=== PATIENT | female | born 1955 | race Caucasian/White ===

== ENCOUNTER → 2017-10-29 15:56 | Outpatient (CLI) | payer OTHER, SELFPAY ==
--- NOTE | 2017-10-29 16:01 | DI.US.S_ITS ---
PROCEDURE: US ABDOMEN LIMITED INDICATIONS: RIGHT LOWER QUADRANT PAIN TECHNIQUE: Real-time focused scanning was performed of the abdomen, with image documentation. COMPARISON: None. FINDINGS: The appendix is not definitively identified. There is tenderness to right lower quadrant during the exam. No free fluid or adenopathy is seen in right lower quadrant abdomen. Prominent bowel wall is seen in right lower quadrant with no adjacent echogenic fat or neural hyperemia. IMPRESSION: No secondary sonographic signs for acute appendicitis. Prominent bowel wall seen in right lower quadrant without significant surrounding inflammation or hyperemia. Low-grade diverticulitis or other infectious inflammatory colitis cannot be entirely excluded. This can be further assessed with CT of abdomen and pelvis with IV and oral contrast if clinically indicated. Dictated by: Ulises Camacho M.D. on 10/29/2017 at 16:38 Approved by: Ulises Camacho M.D. on 10/29/2017 at 17:07
== END ==
PROVIDERS: Family Provider Family Medicine; PCP Family Medicine; Visit Provider Family Medicine
DX: R10.31 Right lower quadrant pain (principal)
CPT/HCPCS: 76705

== ENCOUNTER → 2020-01-16 13:06 | Outpatient (CLI) | payer OTHER, SELFPAY ==
--- NOTE | 2020-01-16 13:10 | DI.MG.S_ITS ---
BILATERAL DIGITAL SCREENING MAMMOGRAM 3D/2D WITH CAD: 01/16/2020 CLINICAL: Routine screening. Comparison is made to exams dated: 12/28/2016 mammogram, 02/25/2015 mammogram, and 12/27/2010 mammogram - [facility]. There are scattered fibroglandular elements in both breasts. Current study was also evaluated with a Computer Aided Detection (CAD) system. There is a focal asymmetry in the right breast at 2 o'clock posterior depth. No other significant masses, calcifications, or other findings are seen in either breast. IMPRESSION: INCOMPLETE: NEEDS ADDITIONAL IMAGING EVALUATION The focal asymmetry in the right breast is indeterminate. Additional views with possible ultrasound are recommended. This exam was interpreted at Station ID: [id number]. NOTE: For mammograms, a report in lay terms will be sent to the patient. Approximately 15% of breast malignancies will not be visualized mammographically. In the management of a palpable breast mass, a negative mammogram must not discourage biopsy of a clinically suspicious lesion. Electronically Signed By: Lakshmi lopez/anna:01/20/2020 10:01:50 copy to: Oli Saldaña letter sent: Additional Imaging Needed ACR BI-RADS Category 0: Incomplete [id number]
== END ==
PROVIDERS: Family Provider Family Medicine; PCP Family Medicine; Referring Provider Family Medicine; Visit Provider Family Medicine
DX: Z12.31 Encounter for screening mammogram for malignant neoplasm of breast (principal)
CPT/HCPCS: 77063; 77067

== ENCOUNTER → 2020-02-26 08:36 | Outpatient (CLI) | payer OTHER, SELFPAY ==
--- NOTE | 2020-02-26 | DI.MG.S_ITS ---
UNILATERAL RIGHT DIGITAL DIAGNOSTIC MAMMOGRAM 3D/2D WITH ADDITIONAL VIEWS: 02/26/2020 CLINICAL: Additional evaluation requested from prior study. Comparison is made to exams dated: 01/16/2020 mammogram, 12/28/2016 mammogram, and 02/25/2015 mammogram - [facility]. There are scattered fibroglandular elements in right breast. There is a new 0.8 cm asymmetry with an indistinct margin in the right breast at 12 o'clock middle depth. This is seen in additional views. No other significant masses or calcifications are seen in the breast. IMPRESSION: INCOMPLETE: NEEDS ADDITIONAL IMAGING EVALUATION The new 0.8 cm asymmetry in the right breast is indeterminate. An ultrasound is recommended. US will be performed and dictated separately. This exam was interpreted at Station ID: [id number]. NOTE: For mammograms, a report in lay terms will be sent to the patient. Approximately 15% of breast malignancies will not be visualized mammographically. In the management of a palpable breast mass, a negative mammogram must not discourage biopsy of a clinically suspicious lesion. Electronically Signed By: Homero Weiner acr/:02/26/2020 09:20:10 letter sent: Additional Imaging Needed ACR BI-RADS Category 0: Incomplete [id number]
--- NOTE | 2020-02-26 | DI.US.S_ITS ---
LIMITED ULTRASOUND OF RIGHT BREAST AND AXILLA: 02/26/2020 CLINICAL: Additional evaluation requested from prior study. Comparison is made to exams dated: 02/26/2020 mammogram, 01/16/2020 mammogram, and 12/28/2016 mammogram - [facility]. Ultrasound of the right breast 12 o'clock, and axilla regions was performed. There is a benign 0.5 cm oval cyst in the right breast at 12 o'clock middle depth 3 cm from the nipple. IMPRESSION: BENIGN There is no sonographic evidence of malignancy. The 0.5 cm oval cyst in the right breast is consistent with a complex cyst and is benign. Return to annual mammogram screening schedule is recommended. This exam was interpreted at Station ID: [id number]. Electronically Signed By: Homero Weiner acr/:02/26/2020 10:32:30 letter sent: Normal Exam Ultrasound BI-RADS: 2 Benign
== END ==
PROVIDERS: PCP Family Medicine; Referring Provider Family Medicine; Visit Provider Family Medicine
DX: R92.8 Other abnormal and inconclusive findings on diagnostic imaging of breast (principal); N60.01 Solitary cyst of right breast
CPT/HCPCS: 76642; 77065; G0279

== ENCOUNTER → 2020-05-28 10:40 | Outpatient (CLI) | payer OTHER, SELFPAY ==
[2020-05-28] MEDS: COVID-19 VACC, Ad26(JANSSEN)/PF 0.5 ML IM (10:52)
== END ==
PROVIDERS: PCP Family Medicine; Visit Provider Internal Medicine
DX: Z23 Encounter for immunization (principal)
CPT/HCPCS: 0031A; 91303

== ENCOUNTER → 2021-04-13 14:11 | Outpatient (CLI) | payer OTHER, SELFPAY ==
--- NOTE | 2021-04-13 14:16 | DI.RAD.S_ITS ---
PROCEDURE: XR DEXA AXIAL SKELETON INDICATIONS: Asymptomatic menopausal state COMPARISON: None. FINDINGS: This blank DEXA report has been sent in error by the PACS system. The correct and complete report will be forthcoming in 1-2 days. Thank you for your patience and understanding. Dictated by: Jesica Kerr MD, PhD on 04/14/2021 at 8:19 Approved by: Jesica Kerr MD, PhD on 04/14/2021 at 8:19
== END ==
PROVIDERS: PCP Family Medicine; Referring Provider Family Medicine; Visit Provider Family Medicine
DX: Z78.0 Asymptomatic menopausal state (principal); M85.851 Other specified disorders of bone density and structure, right thigh
CPT/HCPCS: 77080

== ENCOUNTER → 2021-10-04 11:56 | Outpatient (CLI) | payer OTHER, SELFPAY ==
--- NOTE | 2021-10-04 | DI.US.S_ITS ---
ULTRASOUND OF RIGHT BREAST: 10/04/2021 CLINICAL: Palpable right breast lump. Comparison is made to exams dated: 10/04/2021 mammogram, 02/26/2020 ultrasound, 02/26/2020 mammogram, 01/16/2020 mammogram, and 12/28/2016 mammogram - [facility]. Color flow ultrasound of the right breast was performed. [place] scale images of the real-time examination were reviewed. There is an irregular mass in the right breast at 5 o'clock posterior depth. This irregular mass is hypoechoic with posterior acoustic shadowing. This correlates with mammography findings. Color flow imaging demonstrates that there is no increase in vascularity. IMPRESSION: HIGHLY SUGGESTIVE OF MALIGNANCY The irregular mass in the right breast has a differential diagnosis of carcinoma and is highly suggestive of malignancy. An ultrasound guided biopsy is recommended. This exam was interpreted at Station ID: [id number]. Electronically Signed By: Homero Weiner acr/:10/04/2021 13:12:41 letter sent: Biopsy Required Ultrasound BI-RADS: 5 Highly suggestive of malignancy
--- NOTE | 2021-10-04 | DI.MG.S_ITS ---
BILATERAL DIGITAL DIAGNOSTIC MAMMOGRAM 3D/2D: 10/04/2021 CLINICAL: Right breast mass. Comparison is made to exams dated: 02/26/2020 ultrasound, 02/26/2020 mammogram, 01/16/2020 mammogram, 12/28/2016 mammogram, and 02/25/2015 mammogram - [facility]. There are scattered fibroglandular elements in both breasts. There is a 2 cm mass in the right breast at 3 o'clock posterior depth 7 cm from the nipple. No other significant masses, calcifications, or other findings are seen in either breast. IMPRESSION: INCOMPLETE: NEEDS ADDITIONAL IMAGING EVALUATION The 2 cm mass in the right breast needs additional evaluation. US will be performed and dictated separately. Based on the Tyrer Cuzick model (a risk assessment model) the patient's lifetime risk is 6.4% and her 10 year risk is 3.2%. According to the ACR, ACS, and NCCN guidelines, an annual breast MRI exam along with mammogram is recommended if the patient's lifetime risk is 20% or greater. This exam was interpreted at Station ID: [id number]. NOTE: For mammograms, a report in lay terms will be sent to the patient. Approximately 15% of breast malignancies will not be visualized mammographically. In the management of a palpable breast mass, a negative mammogram must not discourage biopsy of a clinically suspicious lesion. Electronically Signed By: Homero Weiner acr/:10/04/2021 12:31:20 ACR BI-RADS Category 0: Incomplete 3340F
== END ==
PROVIDERS: PCP Family Medicine; Referring Provider Family Medicine; Visit Provider Family Medicine
DX: N64.4 Mastodynia (principal); N63.14 Unspecified lump in the right breast, lower inner quadrant; R92.8 Other abnormal and inconclusive findings on diagnostic imaging of breast
CPT/HCPCS: 76642; 77066; G0279

== ENCOUNTER → 2021-10-13 14:09 | Outpatient (CLI) | payer OTHER, SELFPAY ==
--- NOTE | 2021-10-13 | PATH_ITS ---
[facility] Accession Number: [id number] . 01 Material submitted: . breast - RIGHT BREAST MASS 5:00 . 01 Diagnosis: Right Breast Mass, 5 o'clock, Needle Core Biopsy: Invasive mammary carcinoma. Histologic type: Ductal. Histologic grade: Moderate to poorly differentiated, grade 2-3/3. Combined total Ronal histologic score: 7-8 (tubule formation score 3/3, nuclear pleomorphism score 2-3, mitotic score 2/3). Largest linear dimension of invasive carcinoma: 9.5 mm on one core. Ductal carcinoma in situ (DCIS): Not definitively identified. Lymphovascular invasion: Not identified. Ancillary studies: Estrogen receptor: Positive (99%, moderate to strong intensity). Progesterone receptor: Negative (0%). intensity). HER2: See addendum. MRV 10/19/2021 1535 Local . 01 Comment: As part of ongoing quality improvement coordinator (rn), this case is also reviewed by Dr. Sabiha Sandhu, who concurs with the given interpretation. . HER2 immunohistochemistry is pending and the results will be reported in an addendum. . 01 Electronically signed: . Agnes Yañez MD, Pathologist NPI- [id number] . 01 Gross description: . Received in formalin and labeled with right breast 5:00 are four pieces of coker adipose tissue measuring 2.1 x 0.7 x 0.4 to 0.4 x 0.4 x 0.3 cm. All four pieces are entirely submitted in cassette A1. . Collection date and time is listed as 10/13/2021 at 1524, for a total approximate fixation time after processing of 20 hours. ([id number]) /MRV 10/14/2021 0918 Local . 01 Microscopic: . E-cadherin is positive supporting ductal differentiation. Predictive and prognostic markers are also performed and are refelected in the final diagnosis. All controls stain appropriately. . Technical Note: This test and its performance characteristics have been determined by [facility]. It has not been cleared or approved by the U.S. Food and Drug Administration. The FDA has determined that such clearance or approval is not necessary. This test is used for clinical purposes. It should not be regarded as investigational or for research. . Internal controls for ER and GA are positive. Cold ischemic time is <5 minutes. The scoring criteria for breast biomarkers by immunohistochemistry is based on the ASCO/CAP guidelines (Rom AC et al, J Clin Oncol: 2017Aug 28;36(20):7742-9205 and Mary Ann ME et al, Arch Pathol Lab Med: 2009;134(6):907-22). Deparaffinized sections of formalin fixed tissue (along with appropriate positive controls) are incubated with the above antibody(s). Using the automated [place] stainer, tissue is incubated with the designated antibody which is then localized by a non-biotin, dual polymer detection system. The external controls are reviewed for appropriate reactivity and found to be adequate. Results on the target cell population are indicated above. These tests have not been validated on decalcified or alcohol-based fixed tissue. This test was developed and its performance characteristics determined by [facility]. It has not been cleared or approved by the U.S. Food and Drug Administration. The FDA has determined that such clearance or approval is not necessary. This test is used for clinical purposes. It should not be regarded as investigational or for research. . . 01 Pathologist provided ICD-10: C50.911 . 01 CPT . 981628, 304197, 637880, 582262, K66353 Specimen Comment: A courtesy copy of this report has been sent to [phone] Performed at: 01 [facility] [address] [place] [address], [place], [place] [id number] MD Sergo Schultz MD Phone: [phone]
--- NOTE | 2021-10-13 14:11 | DI.US.S_ITS ---
ULTRASOUND GUIDED BIOPSY RIGHT BREAST USING VACUUM DEVICE WITH MARKING DEVICE INSERTED AND POST MAMMOGRAPHIC IMAGIN10/13/2021 CLINICAL: Right breast mass. PATIENT CONSENT: Risks (minor bleeding, infection, vasovagal reaction and repeat procedure), benefits and alternatives were explained to the patient and written informed consent was obtained. Correlation is made to exams dated: 10/04/2021 ultrasound, 10/04/2021 mammogram, 02/26/2020 ultrasound, 02/26/2020 mammogram, 01/16/2020 mammogram, and 12/28/2016 mammogram - [facility]. An ultrasound guided biopsy using real-time ultrasound was performed for the indistinct irregular shaped mass located in the right breast at 5 o'clock posterior depth 2 cm from the nipple. This was described on the previous mammography and ultrasound reports. The skin was prepped in the usual manner. Local anesthetic was administered to the access site. A skin brittany was made in the breast. The abnormality was approached from the lateral aspect. A 13 gauge biopsy needle was placed adjacent to the abnormality under ultrasound guidance. Once the needle was documented to be in the correct location, six specimens were obtained using the Mammotome biopsy system. A clip was inserted into the biopsy cavity. A sterile dressing was applied to the access site. Post procedure mammographic imaging demonstrates the location device at the targeted area. The specimens were sent to the laboratory for pathological analysis. IMPRESSION: ULTRASOUND GUIDED BIOPSY MALIGNANT Ultrasound guided biopsy of the mass in the right breast at 5 o'clock posterior depth 2 cm from the nipple was successful. Pathology indicates malignant invasive ductal carcinoma (ID). Pathology results are concordant with imaging findings. This exam was interpreted at Station ID: [id number]. Alan lipscomb,lc/:10/20/2021 09:11:16
--- NOTE | 2021-10-13 14:12 | DI.MG.S_ITS ---
UNILATERAL RIGHT DIGITAL DIAGNOSTIC MAMMOGRAM 3D/2D POST-NEEDLE BIOPSY: 10/13/2021 CLINICAL: Right breast post clip. Comparison is made to exams dated: 10/04/2021 ultrasound, 10/04/2021 mammogram, 02/26/2020 mammogram, and 01/16/2020 mammogram - [facility]. There are scattered areas of fibroglandular density in the right breast (category b / 25%-50% glandular tissue). There is a marker clip in the appropriate position in the right breast at 5 o'clock posterior depth. This marker clip placement is at the biopsy site. This correlates with ultrasound findings and the biopsy as well as previously described mass on diagnostic mammogram. IMPRESSION: POST PROCEDURE MAMMOGRAM FOR MARKER PLACEMENT There was a successful marker clip placement in the right breast posterior depth at the 5 o'clock position. Based on the Tyrer Cuzick model (a risk assessment model) the patient's lifetime risk is 6.4% and her 10 year risk is 3.2%. According to the ACR, ACS, and NCCN guidelines, an annual breast MRI exam along with mammogram is recommended if the patient's lifetime risk is 20% or greater. This exam was interpreted at Station ID: [id number]. NOTE: For mammograms, a report in lay terms will be sent to the patient. Approximately 15% of breast malignancies will not be visualized mammographically. In the management of a palpable breast mass, a negative mammogram must not discourage biopsy of a clinically suspicious lesion. Electronically Signed By: Alan Landeros M.D. aty/:10/13/2021 17:09:57 ACR BI-RADS Category Post-procedure mammogram for marker placement
== END ==
PROVIDERS: PCP Family Medicine; Referring Provider Family Medicine; Visit Provider Family Medicine
DX: C50.311 Malignant neoplasm of lower-inner quadrant of right female breast; Z17.0 Estrogen receptor positive status [ER+]
CPT/HCPCS: 19083; 77065

== ENCOUNTER → 2021-11-10 08:27 | Outpatient (CLI) | payer OTHER, SELFPAY ==
--- NOTE | 2021-11-10 08:29 | DI.CT.S_ITS ---
PROCEDURE: CT CHEST ABD PEL W CON INDICATIONS: right breast cancer TECHNIQUE: After the administration of oral and intravenous contrast, axial sections acquired from the supraclavicular neck to the pubic symphysis. Coronal and sagittal reformats were performed. For radiation dose reduction, the following was used: automated exposure control, adjustment of mA and/or kV according to patient size. COMPARISON:[facility], , MM DIAGNOSTIC MAMMO BI, 10/04/2021, 12:14. [facility], , US BX BREAST PERC W VAC DEVICE, 10/13/2021, 14:37. [facility], US BREAST RT LIMITED, 10/04/2021, 12:54. FINDINGS: Image quality: Excellent. CHEST: Lower Neck: No enlarged lymph nodes. Thyroid: Within normal limits. Axillae: There is a 0.9 x 1.1 cm right axillary lymph node Chest Wall: There is a 1.5 x 1.7 cm mass in the right breast, consistent with known breast cancer. Lungs and Airways: Small right lung nodules are present as listed. Nodule 1: 3 mm; right upper lobe; series 5, image 128. Nodule 2: 1 mm; right upper lobe; series 5, image 139. Nodule 3: 1 mm; right middle lobe; series 5, image 194. Pleura: No pneumothorax or pleural effusions. Heart: Heart size is normal. No pericardial effusion. Thoracic Vessels: The aorta and pulmonary arteries demonstrate normal size. Mediastinum and Jeane: No enlarged lymph nodes. Esophagus: No wall thickening. Small hiatal hernia. ABDOMEN: Liver: Unremarkable. Gallbladder: Gallbladder is absent. Biliary ducts: Unremarkable. Pancreas: Unremarkable. Spleen: Unremarkable. Adrenal Glands: Unremarkable. Kidneys and Ureters: Unremarkable. Stomach and Bowel: Stomach, small bowel loops, and colon are normal in caliber. Diverticulosis without acute diverticulitis. There is a moderate to large amount of stool in colon. Peritoneum: No abnormal intraperitoneal fluid. No free air. Ventral Wall: No hernia. Abdominal Nodes: No retroperitoneal or mesenteric adenopathy by size criteria. Vessels: Aorta and inferior vena cava are normal in size. PELVIS: Pelvic Organs: Uterus and ovaries are grossly normal. No adnexal mass. No pathological free-fluid in pelvis. Bladder: Unremarkable. Pelvic Nodes: No enlarged lymph nodes. Miscellaneous: No inguinal hernias are seen. Bones: Grade 1 anterolisthesis of L3 on L4. Moderate degenerative disc and facet disease in lumbar spine. IMPRESSION: 1. There is a mass in the right breast consistent with known breast cancer. 2. A borderline sized right axillary lymph node. Cannot rule out regional lymph node metastasis. 3. Multiple small indeterminate right lung nodules. In this patient with known primary neoplasm, a short-term follow-up CT is recommended in 3 months. 4. Diverticulosis without diverticulitis. Dictated by: Olga Jones M.D. on 11/10/2021 at 13:39 Approved by: Olga Jones M.D. on 11/10/2021 at 13:48
== END ==
PROVIDERS: PCP Family Medicine; Referring Provider Internal Medicine Hematology & Oncology; Visit Provider Internal Medicine Hematology & Oncology
DX: C50.911 Malignant neoplasm of unspecified site of right female breast (principal); R05.9 Cough, unspecified; R63.4 Abnormal weight loss; R91.8 Other nonspecific abnormal finding of lung field; K57.90 Diverticulosis of intestine, part unspecified, without perforation or abscess without bleeding; K44.9 Diaphragmatic hernia without obstruction or gangrene; Z90.49 Acquired absence of other specified parts of digestive tract
CPT/HCPCS: 71260; 74177; Q9967

== ENCOUNTER → 2021-11-14 06:42 | Outpatient (CLI) | payer OTHER, SELFPAY ==
--- NOTE | 2021-11-14 06:43 | DI.ECHO.S_ITS ---
[facility]---------+ [facility] +---------+ : : [address] [place] : : : : [id number] : : : : Phone: [phone]+ Echocardiogram Report + + :Name: KIMBERLEE MORAN Study Date: 11/14/2021 Height: 66 in : :[facility] ReadingLocation: Weight: 155 lb : : Gender: Female BSA: 1.8 m2 : :: 1955 Age: 66 yrs BP: 107/77 mmHg: :Reason For Study: RIGHT BREAST CANCER : :Ordering Physician: ANDRE, : :BLAYNE Performed By: Ila Purvis : :Referring: BLAYNE POWELL : + + Interpretation Summary Left ventricular ejection fraction is estimated to be 55 +/- 5%. Left ventricular global longitudinal strain average is -19.1%. Mild mid to distal inferolateral hypokinesis is suspected. Procedure: A two-dimensional transthoracic echocardiogram with color flow and Doppler was performed. The study quality was technically adequate. There is no prior echocardiogram noted for this patient. The patient was in sinus rhythm with heart rates between 59-64 bpm during the exam. Left Ventricle: The left ventricle is normal in size and wall thickness. Left ventricular ejection fraction is estimated to be 55 +/- 5%. Left ventricular global longitudinal strain average is -19.1%. Mild mid to distal inferolateral hypokinesis is suspected. Right Ventricle: The right ventricle is normal in size and function. Atria: The left atrial size is normal. Right atrial size is normal. There is no Doppler evidence for an interatrial shunt. Mitral Valve: The mitral valve is normal in structure and function. There is mild mitral regurgitation. Aortic Valve: The aortic valve is trileaflet. The aortic valve opens well. There is no aortic valve stenosis. No aortic regurgitation is present. Tricuspid Valve: The tricuspid valve leaflets are thin and pliable. There is mild to moderate tricuspid regurgitation. The right ventricular systolic pressure is estimated to be at least 24 mmHg based on an estimated right atrial pressure of 3 mm Hg. Pulmonic Valve: The pulmonic valve leaflets are thin and pliable; valve motion is normal. There is trace pulmonic regurgitation. Great Vessels: The aortic root is normal size. The dimensions of the ascending aorta are normal. The IVC is of normal diameter and collapses greater than 50% with a sniff. This suggests a low right atrial pressure of 3 mm Hg. Pericardium/ Pleura There is no pericardial effusion. There is no pleural effusion. MMode/2D Measurements & Calculations LVIDd: 5.1 cm LVOT diam: 2.2 cm LVIDs: 3.3 cm Ao root diam: 3.0 cm FS: 35.4 % asc Aorta Diam: 2.9 cm EPSS: 0.67 cm Ao Arch Diam (Prox Trans): 2.8 cm IVSd: 0.66 cm LVPWd: 0.88 cm LV juarez. diameter/BSA (cm/m^2): 2.9 LV sys. diameter/BSA (cm/m^2): 1.8 LA A2 area: 17.1 cm2 RA long axis: 4.8 cm LA A4 area: 16.5 cm2 RA area: 15.6 cm2 LA length (vol): 5.7 cm RA vol: 43.0 ml LA vol: 42.2 ml RA : 24.0 ml/m2 LA vol index: 23.5 ml/m2 IVC diam: 1.1 cm RVD1 (basal): 3.1 cm RVD2 (mid): 2.6 cm TAPSE: 2.3 cm Doppler Measurements & Calculations Ao V2 max: 171.0 cm/sec LVOT Max Rl: 88.2 cm/sec Ao V2 mean: 130.1 cm/sec LV V1 max P.1 mmHg Ao max P.7 mmHg LV V1 VTI: 21.7 cm Ao mean P.2 mmHg KENIA(I,D): 2.1 cm2 Ao V2 VTI: 38.6 cm KENIA(V,D): 1.9 cm2 sev ratio: 0.56 KENIA indexed to BSA (cm^2/m^2): 1.2 MV E max rl: 73.9 cm/sec TR max rl: 228.0 cm/sec MV A max rl: 64.5 cm/sec TR max P.8 mmHg MV E/A: 1.1 PA V2 max: 74.7 cm/sec Med Peak E' Rl: 8.2 cm/sec PA V2 mean: 49.0 cm/sec E/E' med: 9.0 PA mean P.1 mmHg Lat Peak E' Rl: 12.5 cm/sec PA pr(Accel): 10.5 mmHg E/E' lat: 5.9 E/e' average: 7.4 MV dec time: 0.26 sec SV(LVOT): 80.9 ml Reading Physician:02:49 PM
== END ==
PROVIDERS: PCP Family Medicine; Referring Provider Internal Medicine Hematology & Oncology; Visit Provider Internal Medicine Hematology & Oncology
DX: C50.911 Malignant neoplasm of unspecified site of right female breast (principal); I08.1 Rheumatic disorders of both mitral and tricuspid valves
CPT/HCPCS: 93306; 93356

== ENCOUNTER → 2021-11-17 10:38 | Outpatient (CLI) | payer OTHER, SELFPAY ==
--- NOTE | 2021-11-17 10:40 | DI.MRI.S_ITS ---
BREAST MRI OF BOTH BREASTS: 11/17/2021 CLINICAL: Right breast cancer. Comparison is made to exams dated: 10/13/2021 ultrasound biopsy, 10/13/2021 mammogram, 10/04/2021 ultrasound, and 10/04/2021 mammogram - [facility]. Interpretation of this MRI was correlated with available mammograms and ultrasounds. The patient was placed prone in a dedicated breast imaging coil. Precontrast axial STIR and 3D FLASH without fat saturation sequences were obtained. Both before and after bolus injection of contrast, sequential 1-minute axial 3D FLASH with fat saturation sequences for 3 time points, with subtraction images and maximum intensity projections (MIP's) generated. Delayed sagittal FLASH images with fat saturation were also obtained. Computer-aided detection, including computer algorithm analysis of MRI image data for lesion detection and characterization, pharmacokinetic analysis, with further physician review for interpretation, was performed. Image quality: Excellent. There is minimal background parenchymal enhancement. Right breast: At the 5 o'clock region of the right breast 2 centimeters from the nipple, there is a spiculated mass measuring 23 x 19 x 19 millimeters with heterogeneous internal enhancement, with adjacent biopsy clip. Single prominent lymph node that seem to have different morphology than the rest of the lymph nodes in right axilla (series 6, image 126) measuring 14 x 12 millimeters. At the 9 o'clock position of the right breast, 2 centimeters from nipple, there is a 5 millimeter focus (15/50) without washout kinetics. No other suspicious mass, focus, or non mass enhancement is identified. Left breast: No suspicious mass, focus, or non mass enhancement. Miscellaneous: No significant, partially visualized non breast findings. IMPRESSION: KNOWN BIOPSY PROVEN MALIGNANCY Right breast: 23 x 19 x 19 millimeter spiculated heterogeneously enhancing mass at the 5 o'clock position compatible with biopsy-proven invasive ductal carcinoma. There is a single suspicious lymph node in the level 1 position of the superior right axilla (6/126), appearing different from the other lymph nodes in this patient. In addition, there is a solitary focus without washout kinetics measuring 5 millimeters at the 9 o'clock position of the right breast 2 centimeters from the nipple (15/50). If clinically necessary, a second-look ultrasound could be performed to evaluate these findings if tissue sampling is necessary. Left breast: No suspicious mass, non-mass enhancement, or focus. BIRADS 6 COMMENT: The imaging literature indicates that a negative contrast breast MRI examination has a high sensitivity and a moderate specificity for detecting and excluding invasive carcinomas to a detection threshold of 3-5 mm; nonetheless, appropriate clinical and mammographic follow-up are recommended. MRI is not sensitive for detecting DCIS (ductal carcinoma in situ) and may not detect large invasive neoplasms that show only minimal enhancement such as mucinous carcinoma. If there are suspicious calcifications or clinically worrisome palpable masses, then biopsy should still be considered. Invasive neoplasms can be hidden by co-existent and benign enhancement caused by mastitis, hormone therapy effects, radiation therapy, , and recent biopsy or surgery. False positive examinations can occur in a number of circumstances, including breasts that have recently been subject to invasive procedures and those that contain atypical ductal hyperplasia, hormonally stimulated glandular tissue, fat necrosis, or radial scars. This exam was interpreted at Station ID: [id number]. Electronically Signed By: Red Arevalo M.D. lc/:11/17/2021 13:26:35 ACR BI-RADS Category 6: Known biopsy proven malignancy 3346F
== END ==
PROVIDERS: PCP Family Medicine; Referring Provider Internal Medicine Hematology & Oncology; Visit Provider Internal Medicine Hematology & Oncology
DX: C50.311 Malignant neoplasm of lower-inner quadrant of right female breast (principal); R59.0 Localized enlarged lymph nodes
CPT/HCPCS: 77049; A9579

== ENCOUNTER → 2021-11-22 09:36 | Outpatient (CLI) | payer OTHER, SELFPAY ==
[2021-11-22 11:15] LABS: COVID19 -Nasal RAPID Negative (Negative)
== END ==
PROVIDERS: PCP Family Medicine; Visit Provider Surgery
DX: Z01.812 Encounter for preprocedural laboratory examination (principal); Z20.822 Contact with and (suspected) exposure to COVID-19
CPT/HCPCS: 87635; C9803

== ENCOUNTER 2021-11-23 07:46 | Day surgery (SDC) | payer OTHER, SELFPAY ==
[2021-11-21 14:30] VITALS: BMI 25.0
[2021-11-23] VITALS (7 sets, daily range): BP systolic 96–110; BP diastolic 59–69; PULSE 60–71; RESP 12–24; TEMP 36.1–36.9; O2SAT 99–100; BMI 25.0
--- NOTE | 2021-11-23 | DI.RAD.S_ITS ---
PROCEDURE: XR CHEST 1V INDICATIONS: PORT A CATH POST O-P TECHNIQUE: One view of the chest was acquired. COMPARISON: [facility], CT, CT CHEST ABD PEL W CON, 11/10/2021, 9:11. FINDINGS: Surgical changes and devices: There is a tunneled left port device in place. Distal tip projects over the mid SVC. Lungs and pleura: Lungs are clear. No pleural effusions or pneumothorax. Mediastinum: Mediastinal contours appear normal. Heart size is normal. Bones and chest wall: No suspicious bony lesions. Overlying soft tissues appear unremarkable. IMPRESSION: Interval placement of tunneled left port device with the distal tip projecting over the mid SVC. No pneumothorax. Dictated by: Alan Landeros M.D. on 11/23/2021 at 11:47 Approved by: Alan Landeros M.D. on 11/23/2021 at 11:50
[2021-11-23] MEDS: ACETAMINOPHEN 325 MG TABLET 650 MG PO (08:19)
[2021-11-23] MEDS: APREPITANT 40 MG CAPSULE PO (08:19)
[2021-11-23] MEDS: LACTATED RINGERS 1,000 ML 100 ML IV ×2 (08:20→09:36)
--- NOTE | 2021-11-23 08:28 | PM.HP.1 ---
History of Present Illness History of Present Illness Date Patient Seen: 11/23/21 Time Patient Seen: 08:28 Chief complaint: Port a Cath Placement Narrative: 66-year-old woman with right biopsy-proven breast cancer HER2 positive who will be undergoing neoadjuvant therapy. She is here today for Port-A-Cath placement. She has never had a previous indwelling central catheter. No previous bleeding or anesthetic issues other than nausea with prior surgery. Patient History Medical History Anesthesia complication Arthritis COVID-19 virus infection (08/2021) Diverticulosis Hypothyroidism (~11/2020) Surgical History History of surgery of uterus Hx of right breast biopsy (10/13/21) Hx of tonsillectomy Family & Social History Family History Son Leukemia Social History: household members spouse Tobacco & Substance use: Smoking Status Never smoker alcohol intake current alcohol intake frequency 0-2 drinks per day Substance Use Type does not use Meds Home Medications and Allergies Home Medications Medication Instructions Recorded Confirmed Type cholecalciferol (vitamin D3) 50 50 mcg PO DAILY 11/07/21 11/23/21 History mcg (2,000 unit) capsule (Vitamin D3) levothyroxine 75 mcg tablet 75 mcg PO DAILY 11/07/21 11/23/21 History magnesium 200 mg tablet 400 mg PO DAILY 11/07/21 11/17/21 History olive leaf extract 250 mg capsule mg PO 11/07/21 History pectin 2 mg lozenges mg mucous membrane 11/07/21 History Allergies Allergy/AdvReac Type Severity Reaction Status Date / Time amoxicillin Allergy Unknown Rash Verified 11/21/21 14:32 levofloxacin [From Levaquin] Allergy Unknown Seizure Verified 11/07/21 15:57 Exam Narrative Exam Narrative: General adult woman alert oriented no acute distress Chest nonlabored respirations Abdomen soft and nondistended Assessment & Plan Assessment and plan (1) Breast cancer, right breast: Status: Acute Plan 66-year-old woman with HER2 positive right breast cancer here for Port-A-Cath placement. Overview of the procedure was discussed with the patient. Operative risks including bleeding, infection, mechanical device failure, embolism, pneumothorax were discussed. Her questions have been answered and she is in agreement with this plan Time Spent With Patient Critical Care time: I spent a total of [] minutes of critical care time on this patient's care today; this time is exclusive of procedural time.
[2021-11-23] MEDS: CLINDAMYCIN 900 MG/50 ML PIGGYBACK 50 MG IV (08:45)
[2021-11-23] MEDS: BUPIVACAINE 0.25% (PF) VIAL 30 ML INJ (09:15)
[2021-11-23] MEDS: HEPARIN 5,000 UNIT, SODIUM CHLORIDE 0.9% 50 ML IV (09:18)
--- NOTE | 2021-11-23 09:48 | P.OP_ITS ---
Operative Date/Time/Diagnoses Date of procedure: 11/23/21 Time of procedure: 09:48 Pre-op diagnosis: Right breast cancer Post-op diagnosis: same Procedure & Clinicians Procedure: Port-A-Cath placement with ultrasound guidance Same procedure as scheduled: Yes Indications: 66-year-old woman with right breast cancer HER2 positive who will be undergoing neoadjuvant chemotherapy requires central access Surgeon: Alejandro Reed Anesthesia Type: General Operative Notes Findings: Tip of the catheter within the SVC Specimen(s): none sent Estimated Blood Loss (mL): 50 Procedure in detail: Patient was brought to the operating room placed supine on table. Bilateral lower extremity compressive devices were applied. General anesthesia was induced and she was intubated with an LMA. She was then prepped and draped in usual sterile fashion. Time-out was performed ensure the correct patient procedure necessary equipment within the operating room. She received clindamycin prior to incision. Under ultrasound guidance the left internal jugular vein was accessed under direct visualization. The guidewire was then threaded through the needle. Its placement was then confirmed using fluoroscopy. The dilator was then placed over the guidewire. The catheter was then inserted through the sheath. Placement was again confirmed with fluoroscopy. A subcutaneous pocket was made in the right chest wall. The tunneler device was used to move the catheter from the neck to the chest pocket. The port was attached after it was primed with heparined saline. The port was tested to ensure that it flushed easily and had good blood return. The port was then secured to the underlying fascia using interupted Ethibond suture. He mostasis was achieved. The wound was irrigated with sterile saline. The subcutaneous tissues were reapproximated with the 3 0 Vicryl and then skin closed with 4-0 Monocryl. The skin was sealed with Dermabond. Patient tolerated procedure well. The sponge and instrument count at the end operation was correct. Patient emerged from general anesthesia was extubated and taken to the postoperative care unit in stable condition Complications: none Post-operative Condition: stable Disposition: same day surgery
--- NOTE | 2021-11-23 10:25 | SUR.OPER ---
Supine on padded OR bed, head on pillow, arms padded and tucked at sides, legs uncrossed, safety belt at thigh, tape over blanket over lower legs .
--- NOTE | 2021-11-23 10:26 | SUR.OPER ---
history and physical dictated vo. pre operatively Dr Reed
--- NOTE | 2021-11-23 10:48 | SUR.PHASEII ---
Pt discharge to home with port discharge booklet and card with implant information. Steady on feet at bedside.
== END 2021-11-23 10:43 | disposition home or self-care (01) ==
PROVIDERS: PCP Family Medicine; Referring Provider Surgery; Visit Provider Surgery
PROC: (CPT 36561; principal; 2021-11-23 08:45)
DX: C50.911 Malignant neoplasm of unspecified site of right female breast (principal); Z17.0 Estrogen receptor positive status [ER+]; E03.9 Hypothyroidism, unspecified
CPT/HCPCS: 36561; 71045; 82962; C1788; J1100; J1644; J1885; J2250; J2405; J2704; J3010; J3490; J8501

== ENCOUNTER → 2021-12-14 08:10 | Outpatient (CLI) | payer OTHER, SELFPAY ==
--- NOTE | 2021-12-14 | DI.MRI.S_ITS ---
PROCEDURE: MR ABDOMEN WO/W CON INDICATIONS: breast cancer TECHNIQUE: Coronal HASTE, axial 2D FLASH in- and [id number]; axial breath-hold T2 FSE. Dynamic axial VIBE during the administration of contrast; post-contrast coronal VIBE or 2D FLASH with fat saturation from the hepatic dome to the iliac crests. Restricted diffusion weighted imaging and ADC. 20 cc ProHance IV contrast. COMPARISON: [facility], CT, CT CHEST ABD PEL W CON, 11/10/2021, 9:11. FINDINGS: Image quality: Good. Lung bases: Nodule in the right breast measuring 1.7 cm. Restricted diffusion is present. Susceptibility artifact from biopsy clip. No pleural effusions. Heart size is normal. Solid organs: Liver is normal in size. There is a blush of contrast enhancement in segment 2, (13/23), which corresponds to the subtle similar blush of enhancement on CT 11/10/2021. There is no convincing restricted diffusion. There is subtle T2 signal hyperintensity. Small T2 hyperintense focus in the right lobe, (4/14). This is not appreciated on the post-contrast images but there is mild artifact in this region. This does not restrict diffusion and suspect a tiny cyst. Gallbladder is decompressed. Biliary system is non dilated. Pancreas is normal in morphology. No pancreatic ductal dilatation. Spleen is normal in size and enhancement. No adrenal nodules. Both kidneys demonstrate normal size and enhancement, without hydronephrosis. Nodes and vessels: No retroperitoneal or mesenteric adenopathy by size criteria. Aorta and inferior vena cava are normal in size. Bowel and peritoneum: Unenhanced bowel loops are normal in caliber. Duodenal diverticulum. No free fluid. Bones and soft tissues: No ventral hernias. Bone marrow is normal in overall signal. IMPRESSION: 1. Right breast mass measuring 1.7 cm. Biopsy-proven malignancy. 2. No convincing metastatic disease in the abdomen. 3. Suspect small cyst and perfusion abnormality in the liver. -Follow-up CT or MRI could be considered in 6-12 months. 4. Duodenal diverticulum. Dictated by: Alexandre Villa M.D. on 12/15/2021 at 15:01 Approved by: Alexandre Villa M.D. on 12/15/2021 at 15:15
== END ==
PROVIDERS: PCP Family Medicine; Referring Provider Internal Medicine Medical Oncology; Visit Provider Internal Medicine Medical Oncology
DX: C50.911 Malignant neoplasm of unspecified site of right female breast (principal); N32.3 Diverticulum of bladder; Z17.0 Estrogen receptor positive status [ER+]
CPT/HCPCS: 74183; A9579

== ENCOUNTER → 2023-04-26 09:44 | Outpatient (CLI) | payer MEDICARE, OTHER, SELFPAY ==
--- NOTE | 2023-04-26 09:49 | DI.RAD.S_ITS ---
Bone Density Report Name: KIMBERLEE MORAN Age: 67 Sex: Female Ethnicity: White Date of : 1955 Indication: postmenopausal; screening for osteoporosis; parental hip fracture; Referring Provider: ROLA NAM Study: Bone densitometry was performed. Exam Date: April 26, 2023 Accession number: [id number] Bone Density: Region BMD T-score Z-score Classification AP Spine(L1-L4) 1.139 0.8 2.8 Normal Femoral Neck (Left) 0.730 -1.1 0.6 Osteopenia Total Hip (Left) 0.877 -0.5 0.8 Normal Femoral Neck (Right) 0.708 -1.3 0.4 Osteopenia Total Hip (Right) 0.880 -0.5 0.9 Normal Total Hip Mean 0.878 -0.5 0.9 Normal World Health Organization criteria for BMD impression classify patients as: Normal (T-score at or above -1.0), Osteopenia (T-score between -1.0 and -2.5), or Osteoporosis (T-score at or below -2.5). 10-year Fracture Risk(1): Major Osteoporotic Fracture 15% Hip Fracture 1.4% Reported Risk Factors: [place] (), Neck BMD=0.708, BMI=24.9, parental fracture (1) FRAX(R) Version 3.08. Fracture probability calculated for an untreated patient. Fracture probability may be lower if the patient has received treatment. Previous Exams: -- Region Exam Age BMD T-score BMD Change BMD Change Date g/cm2 vs Baseline vs Previous -- AP Spine (L1-L4) 04/26/2023 67 1.139 0.8 -0.061 (-5.0%)# -0.061 (-5.0%)# 04/13/2021 65 1.200 1.4 Total Hip(Left) 04/26/2023 67 0.877 -0.5 -0.019 (-2.2%)# -0.019 (-2.2%)# 04/13/2021 65 0.896 -0.4 Total Hip(Right) 04/26/2023 67 0.880 -0.5 0.037 (4.4%)# 0.037 (4.4%)# 04/13/2021 65 0.843 -0.8 -- *Denotes significance at 95% confidence level, LSC for AP Spine = 0.022 g/cm2, LSC for Total Hip = 0.027 g/cm2 # Denotes dissimilar scan types or analysis methods Impression: The patient has low bone mass, based on the Right Femoral Neck T-score. The patient has an estimated ten-year risk of hip fracture of 1.4% and an estimated ten-year risk of major fracture of 15%, based on the WHO FRAX algorithm. The patient has risk factors, including: parental hip fracture. No significant bone loss was observed. Discussion: BONE DENSITY IS LOW AT ONE OR MORE SKELETAL SITES. This patient's lowest T-score is low at one or more skeletal sites. It meets the World Health Organization's (WHO) criteria for low bone mass (T-score between -1.0 and -2.5). The patient's 10-year risk of fracture as calculated by FRAX is less than the threshold where pharmacological therapy is recommended by the National Osteoporosis Foundation (NOF). However, all treatment decisions require clinical judgment and consideration of individual patient factors, including patient preferences, comorbidities, previous drug use, risk factors not captured in the FRAX model (e.g., frailty, falls, vitamin D deficiency, increased bone turnover, interval significant decline in bone density) and possible under or overestimation of fracture risk by FRAX. The patient should follow a healthful lifestyle (good nutrition with adequate calcium and vitamin D, and appropriate weight-bearing exercise). Follow-Up: Consider repeating this study in 2 to 3 years to reassess this patient's status, or sooner if there is some new clinical indication. Reported by: FREDERICK RAMOS MD on 04/26/2023 10:14:00 AM.
== END ==
LOC: RAD 09:48
PROVIDERS: PCP Family Medicine; Referring Provider Family Medicine; Visit Provider Family Medicine
DX: Z78.0 Asymptomatic menopausal state (principal); Z13.820 Encounter for screening for osteoporosis; M85.851 Other specified disorders of bone density and structure, right thigh
CPT/HCPCS: 77080

== ENCOUNTER → 2024-03-31 16:43 | Outpatient (CLI) | payer MEDICARE, OTHER, SELFPAY ==
--- NOTE | 2024-03-31 16:44 | DI.MG.S_ITS ---
BILATERAL DIGITAL SCREENING MAMMOGRAM 3D/2D WITH CAD POST LUMPECTOMY: 03/31/2024 CLINICAL: Routine screening. Personal history of right breast cancer. Comparison is made to exams dated: 03/07/2023 mammogram, 03/15/2022 mammogram, and 12/12/2021 mammogram - Outside facility. There are scattered areas of fibroglandular density (category b / 25%-50% glandular tissue). Current study was also evaluated with a Computer Aided Detection (CAD) system. There are new grouped heterogeneous calcifications in the right breast at 6 o'clock anterior depth. This correlates with site of previous surgery. No other significant masses, calcifications, or other findings are seen in either breast. IMPRESSION: INCOMPLETE: NEED ADDITIONAL IMAGING EVALUATION The new grouped heterogeneous calcifications in the right breast are indeterminate. Diagnostic mammogram for additional views to include mediolateral and spot magnification views as well as possible ultrasound is recommended. This exam was interpreted at Station ID: [id number]. NOTE: For mammograms, a report in lay terms will be sent to the patient. Approximately 15% of breast malignancies will not be visualized mammographically. In the management of a palpable breast mass, a negative mammogram must not discourage biopsy of a clinically suspicious lesion. Electronically Signed By: Alan Landeros M.D. aty/:04/01/2024 07:53:00 copy to: RICKY KESSLER letter sent: Additional Imaging Needed ACR BI-RADS Category 0: Incomplete: Need Additional Imaging Evaluation
== END ==
PROVIDERS: PCP Family Medicine; Referring Provider Family Medicine; Visit Provider Family Medicine
DX: Z12.31 Encounter for screening mammogram for malignant neoplasm of breast (principal); Z85.3 Personal history of malignant neoplasm of breast
CPT/HCPCS: 77063; 77067

== ENCOUNTER → 2024-09-23 15:17 | Outpatient (CLI) | payer MEDICARE, OTHER, SELFPAY ==
--- NOTE | 2024-09-23 15:30 | DI.RAD.S_ITS ---
PROCEDURE: XR CHEST 2V INDICATIONS: Acute cough TECHNIQUE: 2 views of the chest were acquired. COMPARISON: [facility], CR, XR CHEST 1V, 11/23/2021, 9:38. FINDINGS: Heart, mediastinum and pulmonary vascular: Heart is normal in size and configuration. Mediastinum is unremarkable. Pulmonary vascular is normal. Lungs: Clear Pleural spaces: Normal-no effusions or pneumothorax. Bones and soft tissues: Right mastectomy changes IMPRESSION: No acute cardiopulmonary or metastatic disease evident Dictated by: Richard Chance M.D. on 09/24/2024 at 11:05 Approved by: Richard Chance M.D. on 09/24/2024 at 11:05
== END ==
PROVIDERS: PCP Family Medicine; Referring Provider Family Medicine; Visit Provider Family Medicine
DX: R05.1 Acute cough (principal)
CPT/HCPCS: 71046